=== PATIENT | female | born 1995 | race Hispanic/Latino ===

== ENCOUNTER → 2016-04-24 | Outpatient (CLI) | payer OTHER ==
--- NOTE | 2016-04-24 17:23 | REP ---
MRI PELVIS: TECHNIQUE: Axial T1, sagittal T2 fat sat, T2, coronal T2, axial T2. Length of the uterus is 7.9 cm. 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 The septum extends through the uterus two endometrial cavities with duplication of the cervix as well. I can not determine whether the septum extends into the vagina. Right endometrial thickness is 7 mm, left endometrial thickness is 8 mm. Junctional zone is intact bilaterally. No myometrial abnormality is seen. Ovaries appear normal in size with multiple internal follicles. No suspicious adnexal mass is seen. There is very mild free fluid in the cul-de-sac which is likely physiologic in nature. I see no adenopathy in the visualized pelvis. No other abnormalities are seen. 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 I can not determine whether the septum extends into a vagina. Signed by Jason Perez MD 04/25/2016 04:39 P
== END ==
LOC: M RAD 13:20
PROVIDERS: ATTEND Student in an Organized Health Care Education/Training Program
DX: Q51.2 Other doubling of uterus (principal); Q51.820 Cervical duplication

== ENCOUNTER → 2016-07-16 | Day surgery (SDC) | payer OTHER ==
[~2016-07-16] VITALS: Ht 165.1 cm; Wt 60.3 kg
[~2016-07-16] MED LIST: BUPIVACAINE HCL 0.25% 30 ML VIAL As Ordered ONE; KETOROLAC 60 MG/2 ML VIAL (J1885) As Ordered ONE; LIDOCAINE 2% INJ 100 MG/5 ML SDV (FOR ANES.) As Ordered ONE; LR 1,000 ML IV SCH; MIDAZOLAM INJ 2 MG/2 ML VIAL (J2250) As Ordered ONE; ONDANSETRON 4MG/2ML VIAL (J2405) As Ordered ONE; ONDANSETRON 4MG/2ML VIAL (J2405) IV PRN; PERCOCET 5MG/325MG TAB PO PRN; PROPOFOL 200 MG/20 ML VIAL As Ordered ONE; ROCURONIUM BROMIDE 50 MG/5 ML VIAL As Ordered ONE; dexameTHASONE 4 MG/ML 1ML VIAL (J1100) As Ordered ONE; fentaNYL 100 MCG/2 ML INJECTION (J3010) IV PRN; fentaNYL 250 MCG/5 ML INJECTION (J3010) As Ordered ONE; no medications
[2016-07-16 07:45] LABS: MEAN CORPUSCULAR HEMOGLOBIN 34.1 pg (27.0-33.0); MEAN CORPUSCULAR VOLUME 97.5 fl (80.0-96.0); RED CELL DISTRIBUTION WIDTH 11.8 % (11.5-14.5)
[2016-07-16 08:11] LABS: CONTROL LINE HCG INT CTR LINE PRESENT
[2016-07-16 17:54] VITALS: BP 105/59
--- NOTE | 2016-07-16 21:59 | RO ---
DATE OF PROCEDURE: 07/16/2016 PREPROCEDURE DIAGNOSIS: Mullerian anomaly. 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 OPERATIVE PROCEDURE: 1. Diagnostic laparoscopy. 2. Diagnostic hysteroscopy. 3. Exam under anesthesia. SURGEON: Tram Martinez MD STRATEGY ANALYST: Johnson Redmond MD CLINICAL SERVICE: HEALTHCARE TECHNICIAN ANESTHESIA: GETA INDICATION FOR OPERATION: Geno is a 21-year-old G0 who was originally evaluated for dyspareunia and found to have a potential mullerian abnormality on ultrasound with septate uterus and this was confirmed by MRI. In clinic it was difficult to appreciate whether there were two cervices, though the MRI indicated that there were and she desired further definitive diagnosis. MATERIAL FORWARDED TO LABORATORY: None. DESCRIPTION OF FINDINGS: Vaginal exam under anesthesia revealed two cervices with a partial vaginal septum. LAPAROSCOPIC FINDINGS: Normal appearing uterus, small indentation of the fundus consistent with septate presentation. Ovaries were normal appearance as well as fallopian tubes. Posterior cul-de-sac and anterior cul-de-sac also normal in appearance. No evidence of endometriosis. Normal appearing liver edge. Scant adhesion at the right pelvic brim. Appendix not visualized. HYSTEROSCOPIC FINDINGS: Two separate cervices, each one leading to its own uterine cavity, each uterine cavity having its own ostia. Otherwise, no lesions within the endometrial cavities. INFECTION CLASSIFICATION: 2. ESTIMATED BLOOD LOSS: 5 mL IV FLUIDS: 1400 mL of lactated ringers. URINE OUTPUT: 650 mL via Fitch that was removed at end of procedure. DESCRIPTION OF PROCEDURE: After obtaining informed consent, Geno was taken to the operating room. General endotracheal anesthesia was established. She was placed in low lithotomy position. Examination under anesthesia was performed with the findings as noted above. She was prepped and draped in the usual sterile fashion. Fitch catheter was placed. [place] speculum was placed in the vagina and visualization of both cervices was obtained along with the partial vaginal septum. Anterior lip of the right cervix was grasped with a single tooth tenaculum. Cervix was sequentially dilated using Hanks dilators. The uterine cavity sounded to 6 cm and a Studio uterine manipulator was placed into the cervix. Tenaculum was removed and site hemostasis observed and the bivalve speculum was removed. A 5 mm incision was made in the infra-umbilical fold down through the subcutaneous tissue. Indu clamp was used to spread the subcutaneous tissue. Lower abdominal wall was manually grabbed and lifted up and Optiview trocar was placed at a 90 degree angle. Laparoscope was advanced through the port and intra-abdominal placement was confirmed. Continuous flow carbon dioxide began to establish a pneumoperitoneum at 50 mmHg pressure. A thorough survey was performed with findings as previously mentioned, essentially a normal female pelvis, normal appearing ovaries, fallopian tubes, posterior cul-de-sac, anterior cul-de-sac. The uterus itself was fairly normal in appearance with only a small indentation of the fundus. Scant adhesion at the right pelvic brim, otherwise normal liver edge and no other evidence in the abdomen of adhesions or endometriosis. We released the pneumoperitoneum prior to removal of the infra-umbilical port. Incision was reapproximated using #4-0 Monocryl and Dermabond. We then turned our attention to the hysteroscopic portion of the procedure. We placed a hysteroscopic camera through each of the cervices to evaluate both endometrial cavities after dilating each of the cervices the necessary amount with Hanks dilators. Each endometrial cavity had its own ostia leading to a fallopian tube. There was no communication between the cavities. After removing the hysteroscopic camera, we removed the tenaculum and removed the bivalve speculum. Vaginal sweep revealed nothing retained in the vagina. All counts were correct times two. The patient was awakened and transferred to the recovery room in good condition. ALVARO
== END | disposition home or self-care (01) ==
LOC: M SDC 07:13
PROVIDERS: ATTEND Obstetrics & Gynecology
DX: Q51.10 Doubling of uterus with doubling of cervix and vagina without obstruction (principal); K21.9 Gastro-esophageal reflux disease without esophagitis; F41.9 Anxiety disorder, unspecified; F32.9 Major depressive disorder, single episode, unspecified; J30.2 Other seasonal allergic rhinitis
CPT/HCPCS: 36415; 49320; 58555; 84703; 85027; 86850; 86900; 86901; J1100; J1885; J2250; J2405; J3010

== ENCOUNTER 2016-10-01 19:03 | Emergency (ER) | payer OTHER ==
[~2016-10-01] VITALS: Ht 165.1 cm; Wt 61.8 kg
[~2016-10-01 19:03] MED LIST changes: -BUPIVACAINE HCL 0.25% 30 ML VIAL As Ordered ONE; -KETOROLAC 60 MG/2 ML VIAL (J1885) As Ordered ONE; -LIDOCAINE 2% INJ 100 MG/5 ML SDV (FOR ANES.) As Ordered ONE; -LR 1,000 ML IV SCH; -MIDAZOLAM INJ 2 MG/2 ML VIAL (J2250) As Ordered ONE; -ONDANSETRON 4MG/2ML VIAL (J2405) As Ordered ONE; -ONDANSETRON 4MG/2ML VIAL (J2405) IV PRN; -PERCOCET 5MG/325MG TAB PO PRN; -PROPOFOL 200 MG/20 ML VIAL As Ordered ONE; -ROCURONIUM BROMIDE 50 MG/5 ML VIAL As Ordered ONE; -dexameTHASONE 4 MG/ML 1ML VIAL (J1100) As Ordered ONE; -fentaNYL 100 MCG/2 ML INJECTION (J3010) IV PRN; -fentaNYL 250 MCG/5 ML INJECTION (J3010) As Ordered ONE
--- NOTE | 2016-10-01 23:00 | REPUSA ---
CLINICAL HISTORY: Pain and bleeding. TECHNIQUE: Realtime sonographic images were obtained in multiple projections. COMMENTS: The uterus is anteverted measuring 7.7 x 2.8 x 4.9 cm showing didelphys configuration. The endometri al echo pattern is within normal limits measuring 9.3 mm. There is no evidence of free fluid within the pelvic cul-de-sac. The right ovary measures 3.7 x 1.8 x 2 cm and the left ovary measures 4.2 x 2.4 x 2.8 cm. Both ovari es are free of solid or cystic mass. There is no evidence for abnormal vascularity. IMPRESSION: Uterus didelphys. No acute pathology.
[2016-10-01 23:36] LABS: BASO % 0.4 % (0.0-1.0); EOS # 0.2 K/mm3 (0.0-0.50); EOS % 3.9 % (0.0-3.0); LARGE UNSTAINED CELL # 0.1 K/mm3 (0.0-0.4); LARGE UNSTAINED CELL % 1.4 % (0.0-4.0); LYMPH # 2.6 K/mm3 (1.5-6.5); LYMPH % 45.5 % (24.0-44.0); MEAN CORPUSCULAR HEMOGLOBIN 32.6 pg (27.0-33.0); MEAN CORPUSCULAR HGB CONC 33.5 g/dl (32.0-36.5); MEAN CORPUSCULAR VOLUME 97.4 fl (80.0-96.0); MONO # 0.3 K/mm3 (0.0-0.8); MONO % 4.9 % (0.0-5.0); NEUTROPHILS # 2.4 K/mm3 (1.8-7.7); NEUTROPHILS % 43.8 % (36.0-66.0); PLATELET COUNT, AUTOMATED 212 k/mm3 (150-450); RED CELL DISTRIBUTION WIDTH 11.6 % (11.5-14.5); WHITE BLOOD COUNT 5.6 K/mm3 (4.0-10.0)
[2016-10-01 23:59] LABS: ANION GAP 6 MEQ/L (8-16); BLOOD UREA NITROGEN 11 MG/DL (7-18); CALCIUM LEVEL 8.9 MG/DL (8.5-10.1); CARBON DIOXIDE LEVEL 27 MEQ/L (21-32); CHLORIDE LEVEL 108 MEQ/L (98-107); CREATININE FOR GFR 0.85 MG/DL (0.55-1.02); GLUCOSE, FASTING 93 MG/DL (70-105); POTASSIUM SERUM 3.5 MEQ/L (3.5-5.1); SODIUM LEVEL 141 MEQ/L (136-145)
[2016-10-02 00:15] VITALS: BP 109/62
== END 2016-10-02 00:16 | disposition home or self-care (01) ==
LOC: M ED 19:03
DX: R10.9 Unspecified abdominal pain (principal); N93.9 Abnormal uterine and vaginal bleeding, unspecified; Q51.2 Other doubling of uterus; J30.9 Allergic rhinitis, unspecified

== ENCOUNTER 2017-08-22 12:55 | Emergency (ER) | payer OTHER ==
[2017-08-22 15:35] LABS: BEDSIDE GLUCOSE 76 MG/DL (70-105)
[2017-08-22 15:56] LABS: BASO % 0.3 % (0.0-1.0); EOS # 0.2 10^3/uL (0.0-0.50); EOS % 2.8 % (0.0-3.0); HEMATOCRIT 38.2 % (36.0-47.0); IMMATURE GRANULOCYTE % 0.3 % (0-3.0); LYMPH # 2.6 10^3/uL (1.5-6.5); LYMPH % 42.9 % (24.0-44.0); MEAN CORPUSCULAR HEMOGLOBIN 33.3 pg (27.0-33.0); MEAN CORPUSCULAR VOLUME 97.9 fl (80.0-96.0); MONO # 0.4 10^3/uL (0.0-0.8); MONO % 6.8 % (0.0-5.0); NEUTROPHILS # 2.8 10^3/uL (1.8-7.7); NEUTROPHILS % 46.9 % (36.0-66.0); PLATELET COUNT, AUTOMATED 227 10^3/uL (150-450); RED CELL DISTRIBUTION WIDTH 11.9 % (11.5-14.5)
[2017-08-22 16:23] LABS: ERYTHROCYTE SEDIMENTATION RATE 19 mm/hr (0-20)
[2017-08-22 16:33] LABS: ANION GAP 8 MEQ/L (8-16); BLOOD UREA NITROGEN 12 MG/DL (7-18); CALCIUM LEVEL 9.5 MG/DL (8.5-10.1); CARBON DIOXIDE LEVEL 27 MEQ/L (21-32); CHLORIDE LEVEL 106 MEQ/L (98-107); CREATININE FOR GFR 0.89 MG/DL (0.55-1.30); FREE THYROXINE INDEX 3.2 % (1.3-4.8); GLOMERULAR FILTRATION RATE > 60.0 (>60); GLUCOSE, FASTING 82 MG/DL (70-100); POTASSIUM SERUM 4.1 MEQ/L (3.5-5.1); SODIUM LEVEL 141 MEQ/L (136-145); T UPTAKE 33 % (30-39); THYROID STIMULATING HORMONE 0.995 uIU/ML (0.358-3.740); THYROXINE (T4) 9.6 UG/DL (4.5-12.0)
[2017-08-22 17:19] LABS: VITAMIN B12 LEVEL 1054 PG/ML (247-911)
[2017-08-26 00:08] LABS: Lyme Disease IgG/IgM Antibodie <0.91 ISR (0.00-0.90); Lyme Disease IgM Ab Quantitati <0.80 index (0.00-0.79)
[2017-08-26 15:00] LABS: ANTINUCLEAR ANTIBODIES DIRECT Negative (Negative)
== END 2017-08-22 16:46 | disposition home or self-care (01) ==
LOC: M ED 12:55
DX: R20.9 Unspecified disturbances of skin sensation (principal); G43.809 Other migraine, not intractable, without status migrainosus; J30.2 Other seasonal allergic rhinitis; F41.9 Anxiety disorder, unspecified; F32.9 Major depressive disorder, single episode, unspecified
CPT/HCPCS: 70450

== ENCOUNTER 2017-11-19 13:49 | Emergency (ER) | payer OTHER ==
[2017-11-19 14:51] LABS: BASO % 0.2 % (0.0-1.0); EOS # 0.1 10^3/uL (0.0-0.50); EOS % 0.8 % (0.0-3.0); HEMATOCRIT 36.9 % (36.0-47.0); HEMOGLOBIN 12.5 g/dl (12.0-15.5); IMMATURE GRANULOCYTE % 0.4 % (0-3.0); LYMPH # 2.3 10^3/uL (1.5-6.5); LYMPH % 27.9 % (24.0-44.0); MEAN CORPUSCULAR HEMOGLOBIN 32.9 pg (27.0-33.0); MEAN CORPUSCULAR HGB CONC 33.9 g/dl (32.0-36.5); MEAN CORPUSCULAR VOLUME 97.1 fl (80.0-96.0); MONO # 0.6 10^3/uL (0.0-0.8); MONO % 6.7 % (0.0-5.0); NEUTROPHILS # 5.3 10^3/uL (1.8-7.7); PLATELET COUNT, AUTOMATED 215 10^3/uL (150-450); RED CELL DISTRIBUTION WIDTH 11.8 % (11.5-14.5); WHITE BLOOD COUNT 8.3 10^3/uL (4.0-10.0)
[2017-11-19 14:57] LABS: KETONE, URINE AUTO RFX NEGATIVE (NEGATIVE); LEUKOCYTE ESTERASE UR AUTO RFX NEGATIVE (NEGATIVE); MUCUS, URINE RFX SMALL (NEGATIVE); NITRITE, URINE AUTO RFX NEGATIVE (NEGATIVE); RBC, URINE AUTO RFX 0 /HPF (0-3); SPECIFIC GRAVITY UR AUTO RFX 1.008 (1.002-1.035); SQUAM EPITHELIAL CELL UR AURFX 0 /HPF (0-6); WBC, URINE AUTO RFX 0 /HPF (0-3)
[2017-11-19 16:16] LABS: HCG, SERUM QUANTITATIVE 19291 MIU/ML
== END 2017-11-19 16:42 | disposition home or self-care (01) ==
LOC: M ED 13:49
DX: O26.891 Other specified pregnancy related conditions, first trimester (principal); R10.2 Pelvic and perineal pain; O99.341 Other mental disorders complicating pregnancy, first trimester; F41.9 Anxiety disorder, unspecified; O99.511 Diseases of the respiratory system complicating pregnancy, first trimester; J30.2 Other seasonal allergic rhinitis; Z3A.01 Less than 8 weeks gestation of pregnancy
CPT/HCPCS: 76801